=== PATIENT | female | born 1985 | race Caucasian/White ===

== ENCOUNTER → 2021-12-01 | Outpatient (CLI) | payer OTHER ==
--- NOTE | 2021-12-01 16:09 | US ---
EXAMINATION TYPE: US pelvic complete DATE OF EXAM: 12/01/2021 COMPARISON: NONE CLINICAL HISTORY: N94.6 DYSMENORRHEA. Painful menstruation. TECHNIQUE: Transabdominal (TA). Transabdominal sonographic images of the pelvis were acquired. Date of LMP: Patient unsure/ end of 10/2021 EXAM MEASUREMENTS: Uterus: 7.6 x 5.3 x 4.3 cm Endometrial Stripe: 0.5 cm Right Ovary: 3.1 x 1.4 x 2.2 cm Left Ovary: 2.4 x 2.7 x 1.6 cm 1. Uterus: Retroverted wnl 2. Endometrium: wnl 3. Right Ovary: wnl 4. Left Ovary: wnl 5. Bilateral Adnexa: wnl 6. Posterior cul-de-sac: wnl Retroverted uterus. Endometrial stripe measures 5 mm which is thinned for secretory phase of menstrua l cycle. No free fluid. Ovaries symmetric and normal in size. No adnexal masses. IMPRESSION: Retroverted heterogeneous uterus with thinned endometrium for last known menstrual period . Suboptimal study as transvaginal investigation was not performed to further evaluate.
== END | disposition home or self-care (01) ==
LOC: RADUSWWP 14:59
PROVIDERS: ATTEND Obstetrics & Gynecology
DX: N85.4 Malposition of uterus (principal); R93.89 Abnormal findings on diagnostic imaging of other specified body structures
CPT/HCPCS: 76856